=== PATIENT | female | born 1960 | race Caucasian/White ===

== ENCOUNTER 2018-06-28 13:44 | Emergency (ER) | payer OTHER ==
--- NOTE | 2018-06-28 14:38 | CR ---
Left wrist: Three views of the left wrist were obtained. Comparison: No previous study. Small fracture is identified within the ulnar styloid process. No additional fracture or other bony abnormality is seen. Soft tissue swelling is noted. Impression: 1. Ulnar styloid avulsion fracture. 2. No additional bony abnormality is seen. Diagnostic code #3
--- NOTE | 2018-06-28 14:51 | EDM.PDOC ---
ED HPI GENERAL MEDICAL PROBLEM - General Chief Complaint: Upper Extremity Injury/Pain Stated Complaint: POOS BROKEN ARM Time Seen by Provider: 06/28/18 13:52 Source of Information: Reports: Patient History Limitations: Reports: No Limitations - History of Present Illness INITIAL COMMENTS - FREE TEXT/NARRATIVE: The patient presents with left wrist pain. She was holding a baby today and she slipped and fell. She tried to catch herself and landed on her left arm. She has left wrist pain mostly with movement. She is right hand. She has no other injuries. Onset: Sudden Duration: Minutes: Location: Reports: Upper Extremity, Left (Wrist) Quality: Reports: Sharp Severity: Moderate Improves with: Reports: Immobilization Worsens with: Reports: Movement Context: Reports: Trauma (slipped and fell) Associated Symptoms: Reports: No Other Symptoms Left Wrist Pain Score (Numeric/FACES): 8 - Related Data Allergies Allergy/AdvReac Type Severity Reaction Status Date / Time No Known Allergies Allergy Verified 06/28/18 13:51 Home Meds: Home Meds Hydrocodone/Acetaminophen [Hydrocodon-Acetaminophen 5-325] 1 - 2 each PO Q6HR PRN #20 tablet 06/28/18 [Rx] Social & Family History - Tobacco Use Smoking Status *Q: Never Smoker - Caffeine Use Caffeine Use: Reports: None - Recreational Drug Use Recreational Drug Use: No Review of Systems - Review of Systems Review Of Systems: See Below Constitutional: Reports: No Symptoms Eyes: Reports: No Symptoms Ears: Reports: No Symptoms Nose: Reports: No Symptoms Mouth/Throat: Reports: No Symptoms Respiratory: Reports: No Symptoms Cardiovascular: Reports: No Symptoms GI/Abdominal: Reports: No Symptoms Genitourinary: Reports: No Symptoms Musculoskeletal: Reports: Other (Left wrist pain) ED EXAM, GENERAL - Physical Exam Exam: See Below Exam Limited By: No Limitations General Appearance: Alert, No Apparent Distress Ears: Normal External Exam Nose: Normal Inspection Head: Atraumatic, Normocephalic Neck: Normal Inspection Respiratory/Chest: No Respiratory Distress Extremities: Other (Pain upon palpation to the left wrist. Good sensation and pulses distally. Abrasion over the wrist and distal forearm.) Course - Vital Signs Last Recorded V/S: Last Vital Signs Temp 97.0 F 06/28/18 13:48 Pulse 99 06/28/18 13:48 Resp 16 06/28/18 13:48 BP 167/66 H 06/28/18 13:48 Pulse Ox 99 06/28/18 13:48 - Orders/Labs/Meds Orders: Active Orders 24 hr Category Date Time Status Durable Medical Equipment for Discharge [DME for Oth 06/28/18 14:55 Ordered Discharge] [COMM] Stat Meds: Medications Discontinued Medications Generic Name Dose Route Start Last Admin Trade Name Freq PRN Reason Stop Dose Admin Hydrocodone Bitart/Acetaminophen 2 tab 06/28/18 14:55 [place] 325-5 Mg PO 06/28/18 14:56 ONETIME ONE - Re-Assessments/Exams Free Text/Narrative Re-Assessment/Exam: 06/28/18 14:51 X-ray of her left wrist shows a ulnar styloid fracture. I will get her in a splint and follow up with Dr Benitez. Departure - Departure Time of Disposition: 15:00 Disposition: Home, Self-Care 01 Condition: Good Clinical Impression: Displaced fracture of left ulna styloid process, initial encounter for closed fracture - Discharge Information *PRESCRIPTION DRUG MONITORING PROGRAM REVIEWED*: No *COPY OF PRESCRIPTION DRUG MONITORING REPORT IN PATIENT TAMMY: No Prescriptions: Hydrocodone/Acetaminophen [Hydrocodon-Acetaminophen 5-325] 1 - 2 each PO Q6HR PRN #20 tablet PRN Reason: Pain Referrals: PCP,Not In Area [Primary Care Provider] - Forms: ED Department Discharge Additional Instructions: Ice your wrist for 15 minutes 3 times per day for 3 days and try to elevate your wrist above your heart as much as you can for 3 days to reduce the swelling. Take motrin or tylenol for pain. If that does not help take the hydrocodone. Follow up with an orthopedic surgeon in 1 to 2 weeks. - My Orders Last 24 Hours: My Active Orders 06/28/18 14:55 Durable Medical Equipment for Discharge [DME for Discharge] [COMM] Stat - Assessment/Plan Last 24 Hours: My Active Orders 06/28/18 14:55 Durable Medical Equipment for Discharge [DME for Discharge] [COMM] Stat
[2018-06-28] MEDS ORDERED: Acetaminophen/HYDROcodone 325-5 MG Tab PO ONE (14:55)
[2018-06-28] MEDS ORDERED: Acetaminophen/oxyCODONE 325-5 MG Tab PO ONE (15:11)
== END 2018-06-28 15:15 | disposition home or self-care (01) ==
LOC: JD.ED 13:44 → SUPCPDRO 13:44 → JD.ED 15:15
DX: S52.612A Displaced fracture of left ulna styloid process, initial encounter for closed fracture (principal); W01.0XXA Fall on same level from slipping, tripping and stumbling without subsequent striking against object, initial encounter
CPT/HCPCS: 73110; 99283; A9270